=== PATIENT | female | born 1955 | race Caucasian/White ===

== ENCOUNTER → 2020-08-31 | Outpatient (CLI) | payer OTHER ==
[2020-08-31 12:54] VITALS: BP 173/103; PULSE 115; RESP 16; TEMP 98
--- NOTE | 2020-08-31 13:18 | P.PAINCN ---
History of Present Illness - Reason for Consult Consult date: 08/31/20 - History of Present Illness This is a 65-year-old patient referred by Dr. Marks with a chief complaint of chronic pain in low back and left hip. We saw her last 5 years ago where she was a referral from Dr. Marks. Had a history of laminotomy pain syndrome and was a potential candidate for a spinal cord stimulator.. At the time didnt decide to pursue it. She is multiple surgeries on her back (b/l L2-L3 laminectomy and facetectomy, L2-L3 transforaminal interbody fusion, L2-L3 pedicle screw instrumentation) and has been on several narcotic medications including a fentanyl patch and oxycodone as high as 50 mg every 6 hours.She has had injections before with zero relief. Patient comes today to discuss spinal cord stimulator placement. Patient notes that she is having low back pain with occasional radiation into the left buttock. She does describe the pain as being bilateral. Pain is described as dull and aching and constant throughout the day. She also notes that she has neck and left knee pain and is status post bilateral knee replacements. Pain is currently a 9 out of 10, at its worst a 10 out of 10, at its best an 8 out of 10. She currently takes Percocet 10 mg QID and Lyrica 50 mg BID. Patient also notes pain in her cervical spine and bilateral knees but is more concerned with her back She does not endorse side effects of occasional constipation, excessive sedation, dizziness, and significant fatigue. In addition to above, 13-point review of systems is also negative for chest pain, shortness of breath, changes in vision, changes in hearing, new onset weakness, abdominal pain, diarrhea, extreme fatigue, malaise, fever, skin changes, homicidal or suicidal ideation, or bowel or bladder incontinence. Physical exam: Vital Signs: Reviewed in EMR GENERAL: Well appearing, in no acute distress, walks with a walker PSYCH: Mood and affect is appropriate. Awake, alert, and oriented SKIN: Skin color, texture, turgor normal, no rashes or lesions HEENT: Normocephalic, atraumatic. EOM intact CV: No pedal edema RESP: Respirations are unlabored, no audible wheezing GI: Abdomen non-distended MUSCULOSKELETAL: Bilateral upper and lower extremity strength is normal and symmetric. No atrophy or tone abnormalities are noted. Lumbar spine: Has a brace over her lumbar spine which she refers to as a bone stimulator which was given to her from Dr. Marks Straight leg raising in the sitting position is positive for low back pain. No pain to palpation over the lumbar spine and paraspinous muscles. Positive for pain with facet loading and back extension/rotation.Unable to flex lumbar spine due to pain Decreased hip flexion 4/5 on the left side. Otherwise strength is 5/5. Extremities: Significant laxity in the left knee. No edema or skin discolorations noted. Well healed surgical scar over both knees. Gait: Gait is antalgic NEUR: Bilateral upper and lower extremity coordination and muscle stretch reflexes are 1+ and symmetric. Patellar reflex is 0+ on left side. Negative clonus. No loss of sensation is noted. Cranial nerves are grossly intact. Imaging: Prior MRI lumbar spine Comments: MRI of the lumbar spine from February 2015 demonstrates multiple disc bulges worst is a right paracentral at the L3-L4 level and another at the right-sided T12-L1 level with indentation along the interior portion of the thecal sac. There is significant artifact from into her particular stabilization screws at the L4 and L5 levels there is also significant facet hypertrophy at the lower lumbar spine and the lumbosacral junction. Assessment: 1. Post laminectomy syndrome 2. Plan: 1. Explanation: Diagnoses, prognoses, and multiple treatment options including but not limited to physical therapy, interventional therapies, medication management and surgery were discussed with the patient and all questions were answered to the patient's satisfaction. 2. Investigations: I have ordered a thoracic spine MRI for the potential spinal cord stimulator replacement. She also notes that she has recent lumbar MRIs and I told her to bring that with her to the [facility] in [place]. 3. Counseling: I had a long discussion with the patient regarding spinal cord stimulator placement. I talked through the trial phase and eventual permanent implant with the neurosurgeon. Patient is understanding. This is a patient that has been on significantly higher doses of opioid medications in the past and has since come down. We talked about further decreasing medications with the stimulator and she is agreeable. However the end of the visit she did ask me if I could refill her medications as her primary care provider will not fill them anymore. I told her I would not and that were she to go to [facility] in [place] did also not refill these high-dose medications for her. Gave her information regarding Nevro HF10 SCS 4. Procedures: Referred her to [facility] in [place] for spinal cord stimulator evaluation 5. Consultations: She did mention that she was approved for a stimulator at some other pain center but decided to leave them because she did not feel they were treating her appropriately (was only seeing midlevels, not physicians). She did mention that there was psychiatric approval for the stimulator placement and that she will working at those records. 6. Medications: Educated her that we will not be refilling her medications and neither will be [facility] 7. 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 History of Any Multi-Drug Resistant Organisms: None Reported Past Surgical History: Back Surgery, Joint Replacement Additional Past Surgical History / Comment(s): john total knee replacement, thoracotomy , back surgery x9 (1 cervical fusion and 8 lower back surgerys) Past Anesthesia/Blood Transfusion Reactions: No Reported Reaction Past Psychological History: Anxiety, Depression Smoking Status: Former smoker Past Alcohol Use History: None Reported Additional Past Alcohol Use History / Comment(s): quit smoking 2006, smoked 1 ppd, started smoking age 17. Past Drug Use History: None Reported - Past Family History Mother Family Medical History: No Reported History Medications and Allergies Home Medications Medication Instructions Recorded Confirmed Type DULoxetine HCL [Cymbalta] 60 mg PO HS 08/29/20 08/31/20 History Ibuprofen [Motrin] 800 mg PO Q6HR PRN 08/29/20 08/31/20 History Omeprazole [PriLOSEC] 40 mg PO DAILY 08/29/20 08/31/20 History Pregabalin [Lyrica] 50 mg PO BID 08/29/20 08/31/20 History Rosuvastatin Calcium [Crestor] 40 mg PO HS 08/29/20 08/31/20 History Vancomycin 125 mg PO Q6HR 08/29/20 08/31/20 History oxyCODONE-APAP 10-325MG [Percocet 1 - 2 tab PO Q6HR PRN 08/29/20 08/31/20 History 10-325 mg] Allergies Allergy/AdvReac Type Severity Reaction Status Date / Time No Known Allergies Allergy Verified 08/29/20 14:22 PQRS Measure Charge Sheet PQRS Narrative: Smoking Status Current every day smoker Pain Intensity [Lower Back] 8 Scale Used Numeric (1 - 10) Home Medications: Ambulatory Orders DULoxetine HCL [Cymbalta] 60 mg PO HS 08/29/20 Ibuprofen [Motrin] 800 mg PO Q6HR PRN 08/29/20 Omeprazole [PriLOSEC] 40 mg PO DAILY 08/29/20 Pregabalin [Lyrica] 50 mg PO BID 08/29/20 Rosuvastatin Calcium [Crestor] 40 mg PO HS 08/29/20 Vancomycin 125 mg PO Q6HR 08/29/20 oxyCODONE-APAP 10-325MG [Percocet 10-325 mg] 1 - 2 tab PO Q6HR PRN 08/29/20
== END | disposition home or self-care (01) ==
LOC: PNWHC3 12:34
PROVIDERS: ATTEND Anesthesiology
DX: M96.1 Postlaminectomy syndrome, not elsewhere classified (principal); F17.200 Nicotine dependence, unspecified, uncomplicated; K21.9 Gastro-esophageal reflux disease without esophagitis; Z79.899 Other long term (current) drug therapy; Z79.2 Long term (current) use of antibiotics
CPT/HCPCS: 99211

== ENCOUNTER 2022-12-26 06:49 | Day surgery (SDC) | payer MEDICARE, OTHER ==
[2022-12-25 10:05] VITALS: BMI 24.9
[2022-12-26] MEDS ORDERED: LACTATED RINGERS 1,000 ML IV SCH (07:12)
[2022-12-26 07:23] VITALS: TEMP 98.2
[2022-12-26] MEDS ORDERED: LIDOCAINE 2% INJ 20 MG/ML (2 ML VIAL) ONE (08:52)
[2022-12-26] MEDS ORDERED: PROPOFOL 10 MG/ML 20 ML VIAL IV ONE (08:52)
--- NOTE | 2022-12-26 09:11 | P.PCN ---
Date of Procedure: 12/26/22 Procedure(s) Performed: Brief history: Patient is a pleasant 67-year-old white female scheduled for an elective upper endoscopy as well as colonoscopy as a part of evaluation of chronic diarrhea and abdominal pain associated with intermittent nausea vomiting for the last several months duration. She was diagnosed with collagenous colitis in the past. Lately has been having worsening diarrhea with bowel movements anywhere from 10- 15 a day which are loose to watery in consistency of occasional fecal incontinence. She was treated with prednisone for 2 months and the diarrhea improved. She has been having 15-25 bowel movements daily. She is currently on Lomotil 2 tablets 4 times daily, Bentyl 2 tablets 4 times daily and still remains symptomatic and hence scheduled for repeat colonoscopy today. Procedure performed: Esophagogastroduodenoscopy with biopsy Colonoscopy with biopsy Preoperative diagnosis: Abdominal pain/nausea vomiting Chronic severe diarrhea and history of collagenous colitis Anesthesia: MAC Procedure: After informed consent was obtained from the patient was brought into the endoscopy unit and IV sedation was administered by anesthesia under continuous monitoring. Initially upper endoscopy was done. The Olympus GF 160 video endoscope was inserted inserted into the mouth and esophagus intubated without any difficulty and was gradually advanced into the stomach and duodenum and carefully examined. The bulb and second part of the duodenum appeared normal. Multiple biopsies were done from the duodenum to rule out celiac disease. The scope was then withdrawn into the stomach adequately insufflated with air and upon careful examination the antrum and body, cardia and fundus appeared normal. The scope was then withdrawn into the esophagus. The GE junction was located at 40 cm to the incisors. Small sliding Hiatal hernia noted. The GE junction had linear erosions in the distal esophagus consistent with LA grade B reflux esophagitis. . Rest of the esophagus appeared normal. Patient tolerated the procedure well. At this time the patient continued to remain sedation. Initial digital rectal examination was normal. Olympus CF 160 video colonoscope was then inserted into the rectum and gradually advanced to the cecum without any difficulty. Careful examination was performed as the scope was gradually being withdrawn. The prep was excellent. The cecum, ascending colon, transverse colon, descending colon, sigmoid colon and rectum appeared normal. Abscesses were done from the ascending, transverse and descending colon to evaluate for collagenous colitis. Retroflexion was performed in the rectum and no lesions were noted. Patient t olerated the procedure well. Impression: 1. Upper endoscopy revealed small hiatal hernia and LA grade B reflux esophagitis 2. Colonoscopy was within normal limits with no evidence of colitis or col orectal neoplasia. Recommendations: Findings of this examination were discussed with the patient as well as her family. She was advised to follow with the biopsy results. She will continue her current medications and she'll be seen in office in 2-3 weeks.
[2022-12-26 09:27] VITALS: RESP 16
[2022-12-26 09:36] VITALS: BP 152/81; PULSE 94
== END 2022-12-26 09:56 | disposition home or self-care (01) ==
LOC: ORWHC2ENDO 06:49
PROVIDERS: ATTEND Internal Medicine Gastroenterology
DX: K29.80 Duodenitis without bleeding (principal); K52.839 Microscopic colitis, unspecified; K44.9 Diaphragmatic hernia without obstruction or gangrene; K21.00 Gastro-esophageal reflux disease with esophagitis, without bleeding; I10 Essential (primary) hypertension; E78.5 Hyperlipidemia, unspecified; F41.8 Other specified anxiety disorders; M48.00 Spinal stenosis, site unspecified; Z79.899 Other long term (current) drug therapy
CPT/HCPCS: 88305; 45380; 43239; J2704; J2001

== ENCOUNTER → 2024-02-14 | Outpatient (CLI) | payer MEDICARE ==
--- NOTE | 2024-02-14 12:15 | CT ---
EXAMINATION TYPE: CT lumbar spine wo con DATE OF EXAM: 02/14/2024 11:59 AM COMPARISON: None HISTORY: back pain CT DLP: 386.1 mGycm Automated exposure control for dose reduction was used. Unenhanced CT of the lumbar spine was performed. Bone and soft tissue window settings are submitted as well as coronal and sagittal reconstructions. L1-L2: Vacuum disc. Intervertebral spacer. Pedicular screws are in place. Postoperative alignment is near-anatomic. No evidence for recurrent or residual process. L2-L3: Vacuum disc. Intervertebral spacer. Pedicular screws are in place. Postoperative alignment is near-anatomic. No evidence for recurrent or residual process. Decompressive laminectomy change. L3-L4: Decompressive laminectomy change. Intervertebral body spacer. Pedicular screw removal. Postope rative alignment is within normal limits. No evidence for recurrent or residual disease. L4-L5: Decompressive laminectomy change. Intervertebral body spacer. Pedicular screw removal. Postope rative alignment is within normal limits. No evidence for recurrent or residual disease. L5-S1: Decompressive laminectomy change. 2 intervertebral cages are noted to be in place. Postoperati ve alignment is within normal limits. No evidence recurrent or residual disease. IMPRESSION: Extensive postoperative changes of decompressive laminectomy and fusion. No evidence for recurrent or residual disease.
--- NOTE | 2024-02-14 14:21 | CT ---
EXAMINATION TYPE: CT cervical spine wo con DATE OF EXAM: 02/14/2024 COMPARISON: None HISTORY: neck pain CT DLP: 297.[address] of the cervical spine was performed with bone and soft tissue window settings submitted . Coronal and sagittal reconstruction is obtained. There is normal alignment and prevertebral soft tissues. Anterior cervical discectomy and fusion extending from C3 through C7. At C4-5 there is retrolisthesis of C4 on C5 of 3.8 mm. At C7-T1 there is anterolisthesis of C7 on T1 of 3.4 mm. There is posterior b meri ridging. No definite evidence for recurrent or residual process. Biapical scarring noted. IMPRESSION: Postsurgical changes as noted with postoperative alignment as discussed above.
== END | disposition home or self-care (01) ==
LOC: RADCTMAIN 11:29
PROVIDERS: ATTEND Neurological Surgery
DX: M54.2 Cervicalgia (principal); Z98.1 Arthrodesis status
CPT/HCPCS: 72125; 72131

== ENCOUNTER → 2024-10-28 | Outpatient (CLI) | payer MEDICARE ==
[2024-10-28 13:20] VITALS: BP 157/93; PULSE 70; RESP 16; TEMP 97.5
--- NOTE | 2024-10-28 15:46 | P.PAINPG ---
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 Pt states pain level is provoked at 7 /10 in intensity, constant, localized in the neck and lumbar spine, predominantly axial, achy in character w occasional shooting pain towards the shoulders and LEs. Pain is provoked by over activity and PT. Pain is alleviated by physician guided home stretches daily since 2021, heat, ice, medications, repositioning and rest . Oswestry axial pain score at 35. PMH: OA, GERD, HTN, Hyperlipidemia, Legionnaire's Disease, Hx of TB, MDD/ Anxiety PSH: KARLI L3-L4, KARLI T11-T12, Thoracotomy (2006), BL Total Knee Replacement, Lumbar Surgery x8, Posterior C3-C7 ACDF w hardware, C2-T2 Surgery, Colonoscopy (2022) SH: Former tobacco use, No ETOH use, No illicit drug use FH: Mo- No Reported History All: See list Meds: See list including Percocet, Zanaflex, Ibu, Tyl REVIEW OF ORGAN SYSTEMS: CONSTITUTIONAL: No fevers or chills. No recent weight loss. NEUROLOGICAL: + numbness and tingling along the distal extremities. No seizure disorders or headaches. MUSCULOSKELETAL: + pain PSYCHIATRIC: Denies current depression or suicidal thoughts. Physical Examinations : Constitutional : Cooperative , not in acute distress . Neurologic : Cranial nerve II to XII intact. No focal neurological deficits. Psychiatric : alert & oriented x 3. Matching mood & appropriate affect. Judgment & insight intact. Musculoskeletal : Cervical Spine Motor strength in the deltoid and biceps: Normal right side. Normal Left side Motor strength biceps and the wrist extensors: Normal right side . Normal left side Motor strength in the triceps muscle: Normal right side. Normal left side Deep tendon reflexes: Normal at the biceps. Normal at Brachioradialis. Normal at triceps Vertebral body tenderness to deep palpation over Cervical facet loading test: positive bilaterally Spurling test: positive bilaterally Taut bands w twitch response over BL C2-T4 Neck distraction test: positive bilaterally Jaspreet sign: positive bilaterally Lumbar spine Motor strength lower extremities ,thigh and legs 5/5 Right side , 5/5 Left side Deep tendon reflexes : Normal Knee Jerk. Normal Ankle Jerk Vertebral body tenderness over Sweeney Test positive Lumbar facet Loading Test: positive Right / positive Left Range of motion of the lumbar spine Flexion 30 degrees, extension 10 degrees Straight Leg Raise test: Left/ Right positive at degrees Charlette test: positive right / positive left. Severe tenderness over the Sacroiliac joint on the Right / Left sides Gaenslen test: positive bilaterally Seated flexion test: positive bilaterally. Sacral spine : Severe tenderness over the Sacroiliac joint: right side / left side Range of motion: Flexion of the lumbar spine <60 degrees Range of motion: Extension of the lumbar spine <20 degrees Gaenslen's Test positive Charlette test: positive right side / left side Thigh Thrust Test Sacral Thrust Test Imaging: CT non contrast thoracic spine from 10/01/24 reviewed Assessment/ Plan : T3 fracture, C3-C7 ACDF w hardware, post lumbar laminectomy syndrome Recommendation of BL TPIs C2-T4 #1 and medication management. Reduced MME equivalents of Percocet 10/325mg from 90MME by reducing frequency while integrating TPIs. Opiate/ narcotic agreement signed 10/28/24. Will no longer fill narcotics from Dr Hope's office of which pt acknowledges understanding. Will substitute Zanaflex to Baclofen for usp muscle relaxation. Add Narcan of which use of device discussed in cases of diminished level of consciousness or respiratory distress. Pt acknowledged she lives w female distribution tech at [facility] whom acknowledged being aware of its use. Risks, benefits of procedure discussed and patient verbalized understanding. Admits to anti- coagulant use or medical history of diabetes. Protocol for discontinuation/ continuation of medications marcelina procedure discussed. All questions answered. I have spent greater than 30 minutes on patient care today. Dr Nance was available by phone for the evaluation of this patient. The time was used to review the medical records including relevant urine studies and Prescription history (MAPs), review of the available imaging, evaluation and examination of the patient, coordination of care with the medical staff and if applicable referring physicians, as well as creation of the medical record PQRS Narrative: Smoking Status Current every day smoker Home Medications: Ambulatory Orders DULoxetine HCL [Cymbalta] 90 mg PO HS 08/29/20 Ibuprofen [Motrin] 800 mg PO Q6HR PRN 08/29/20 Omeprazole [PriLOSEC] 40 mg PO DAILY 08/29/20 Rosuvastatin Calcium [Crestor] 40 mg PO HS 08/29/20 Metoprolol Tartrate [Lopressor] 25 mg PO DAILY 12/25/22 Controlled Substance Measures - Controlled Substance Measures Is patient prescribed a controlled substance at discharge?: Yes When asked, does pt state using other controlled substances?: Yes If prescribed controlled substance>3 days was MAPS reviewed?: Yes If Rx opioid, was Start Talking consent form obtained?: Yes Was information provided regarding opioid addiction?: Yes
== END ==
LOC: PNWHC3 12:35
PROVIDERS: ATTEND Specialist
DX: S22.039A Unspecified fracture of third thoracic vertebra, initial encounter for closed fracture (principal); M43.22 Fusion of spine, cervical region; M96.1 Postlaminectomy syndrome, not elsewhere classified
CPT/HCPCS: 99211

== ENCOUNTER → 2025-01-27 | Outpatient (CLI) | payer MEDICARE ==
[2025-01-27 14:18] VITALS: BP 134/80; PULSE 108; RESP 17; TEMP 98.3
--- NOTE | 2025-01-27 16:56 | P.PAINPG ---
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 Pt states pain level is provoked at 8 /10 in intensity, constant, localized in the neck and lumbar spine, predominantly axial, achy in character w occasional shooting pain towards the shoulders and LEs. Pain is provoked by over activity and PT. Pain is alleviated by physician guided home stretches daily since 2021, heat, ice, medications, repositioning and rest. States she will have cervical surgery within the next 1-[address] Adams, Plastic and Reconstructive Surgeon in [place], [place]. Per MAPS, last pickle solution maker of Percocet 10/325mg #160 from pharmacy was 12/28/24. Will check UDS at next visit. Interventional procedures include Lumbar Surgery x8, Posterior C3-C7 ACDF w hard alvarez, C2-T2 Surgery, KARLI L3-L4, KARLI T11-T12 Medications include Percocet, Zanaflex, Ibu, Tyl REVIEW OF ORGAN SYSTEMS: CONSTITUTIONAL: No fevers or chills. No recent weight loss. NEUROLOGICAL: + numbness and tingling along the distal extremities. No seizure disorders or headaches. MUSCULOSKELETAL: + pain PSYCHIATRIC: Denies current depression or suicidal thoughts. Physical Examinations : Constitutional : Cooperative , not in acute distress . Neurologic : Cranial nerve II to XII intact. No focal neurological deficits. Psychiatric : alert & oriented x 3. Matching mood & appropriate affect. Judgment & insight intact. Musculoskeletal : Cervical Spine Motor strength in the deltoid and biceps: Normal right side. Normal Left side Motor strength biceps and the wrist extensors: Normal right side . Normal left side Motor strength in the triceps muscle: Normal right side. Normal left side Deep tendon reflexes: Normal at the biceps. Normal at Brachioradialis. Normal at triceps Vertebral body tenderness to deep palpation over Cervical facet loading test: positive bilaterally Spurling test: positive bilaterally Taut bands w twitch response over BL C2-T4 Neck distraction test: positive bilaterally Jaspreet sign: positive bilaterally Lumbar spine Motor strength lower extremities ,thigh and legs 5/5 Right side , 5/5 Left side Deep tendon reflexes : Normal Knee Jerk. Normal Ankle Jerk Vertebral body tenderness over Sweeney Test positive Lumbar facet Loading Test: positive Right / positive Left Range of motion of the lumbar spine Flexion 30 degrees, extension 10 degrees Straight Leg Raise test: Left/ Right positive at degrees Charlette test: positive right / positive left. Severe tenderness over the Sacroiliac joint on the Right / Left sides Gaenslen test: positive bilaterally Seated flexion test: positive bilaterally. Sacral spine : Severe tenderness over the Sacroiliac joint: right side / left side Range of motion: Flexion of the lumbar spine <60 degrees Range of motion: Extension of the lumbar spine <20 degrees Gaenslen's Test positive Charlette test: positive right side / left side Thigh Thrust Test Sacral Thrust Test Imaging: CT non contrast thoracic spine from 10/01/24 reviewed Assessment/ Plan : T3 fracture, C3-C7 ACDF w hardware, post lumbar laminectomy syndrome Recommendation of medication management. Percocet 10/325mg #160, Baclofen 10mg #60 w 1 RF. Opiate/ narcotic agreement signed 10/28/24. Add Narcan of which use of device discussed in cases of diminished level of consciousness or respiratory distress. Pt acknowledged she lives w female time motion analyst at [facility] whom acknowledged being aware of its use. Risks, benefits of procedure discussed and patient verbalized understanding. Admits to anti- coagulant use or medical history of diabetes. Protocol for discontinuation/ continuation of medications marcelina procedure discussed. All questions answered. I have spent greater than 30 minutes on patient care today. Dr Nance was available by phone for the evaluation of this patient. The time was used to review the medical records including relevant urine studies and Prescription history (MAPs), review of the available imaging, evaluation and examination of the patient, coordination of care with the medical staff and if applicable referring physicians, as well as creation of the medical record - Pain Location Throat Non-Pharmacological Interventions: Heat, Ice, Relaxation Technique Pharmacological Interventions: Medication PQRS Narrative: Smoking Status Current every day smoker Home Medications: Ambulatory Orders DULoxetine HCL [Cymbalta] 90 mg PO HS 08/29/20 Ibuprofen [Motrin] 800 mg PO Q6HR PRN 08/29/20 Omeprazole [PriLOSEC] 40 mg PO DAILY 08/29/20 Rosuvastatin Calcium [Crestor] 40 mg PO HS 08/29/20 Metoprolol Tartrate [Lopressor] 25 mg PO DAILY 12/25/22 Naloxone HCl [Narcan] 4 mg NASAL ONCE PRN 365 Days #1 each 10/28/24 Baclofen 10 mg PO BID 30 Days #60 tab 01/27/25 oxyCODONE HCL/ACETAMINOPHEN [Percocet 10-325 mg] 1 each PO Q4-6H PRN 30 Days #160 tab 01/27/25 oxyCODONE HCL/ACETAMINOPHEN [Percocet 10-325 mg] 1 tab PO Q4-6H PRN 30 Days #160 tab 01/27/25 Controlled Substance Measures - Controlled Substance Measures Is patient prescribed a controlled substance at discharge?: Yes When asked, does pt state using other controlled substances?: No If prescribed controlled substance>3 days was MAPS reviewed?: Yes
== END ==
LOC: PNWHC3 14:00
PROVIDERS: ATTEND Specialist
DX: S22.039A Unspecified fracture of third thoracic vertebra, initial encounter for closed fracture (principal); M43.22 Fusion of spine, cervical region; M96.1 Postlaminectomy syndrome, not elsewhere classified; F17.200 Nicotine dependence, unspecified, uncomplicated
CPT/HCPCS: 99212

== ENCOUNTER → 2025-03-25 | Outpatient (CLI) | payer MEDICARE ==
[2025-03-25 08:53] VITALS: BP 120/81; PULSE 65; RESP 16; TEMP 96.1
--- NOTE | 2025-03-25 14:55 | P.PAINPG ---
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 Had cervical surgery complications requiring intermittent course of stronger pain medications and had visit w surgeon on 02/11/25. Pt states pain level is provoked at 8 /10 in intensity, constant, localized in the neck and lumbar spine, predominantly axial, achy in character w occasional shooting pain towards the shoulders and LEs. Pain is provoked by over activity and PT. Pain is alleviated by physician guided home stretches daily since 2021, heat, ice, medications, repositioning and rest. States she will have cervical surgery within the next 1-[address] Adams, Plastic and Reconstructive Surgeon in [place], [place]. Will check UDS at next visit. Interventional procedures include Lumbar Surgery x8, Post Fusion C4-T1 (02/21), Hx post C3-C7 ACDF w hardware, C2-T2 Surgery, KARLI L3-L4, KARLI T11-T12 Medications include Percocet, Zanaflex, Ibu, Tyl REVIEW OF ORGAN SYSTEMS: CONSTITUTIONAL: No fevers or chills. No recent weight loss. NEUROLOGICAL: + numbness and tingling along the distal extremities. No seizure disorders or headaches. MUSCULOSKELETAL: + pain PSYCHIATRIC: Denies current depression or suicidal thoughts. Physical Examinations : Constitutional : Cooperative , not in acute distress . Neurologic : Cranial nerve II to XII intact. No focal neurological deficits. Psychiatric : alert & oriented x 3. Matching mood & appropriate affect. Judgment & insight intact. Musculoskeletal : Cervical Spine Motor strength in the deltoid and biceps: Normal right side. Normal Left side Motor strength biceps and the wrist extensors: Normal right side . Normal left side Motor strength in the triceps muscle: Normal right side. Normal left side Deep tendon reflexes: Normal at the biceps. Normal at Brachioradialis. Normal at triceps Vertebral body tenderness to deep palpation over Cervical facet loading test: positive bilaterally Spurling test: positive bilaterally Taut bands w twitch response over BL C2-T4 Neck distraction test: positive bilaterally Jaspreet sign: positive bilaterally Lumbar spine Motor strength lower extremities ,thigh and legs 5/5 Right side , 5/5 Left side Deep tendon reflexes : Normal Knee Jerk. Normal Ankle Jerk Vertebral body tenderness over Sweeney Test positive Lumbar facet Loading Test: positive Right / positive Left Range of motion of the lumbar spine Flexion 30 degrees, extension 10 degrees Straight Leg Raise test: Left/ Right positive at degrees Charlette test: positive right / positive left. Severe tenderness over the Sacroiliac joint on the Right / Left sides Gaenslen test: positive bilaterally Seated flexion test: positive bilaterally. Sacral spine : Severe tenderness over the Sacroiliac joint: right side / left side Range of motion: Flexion of the lumbar spine <60 degrees Range of motion: Extension of the lumbar spine <20 degrees Gaenslen's Test positive Charlette test: positive right side / left side Thigh Thrust Test Sacral Thrust Test Imaging: CT non contrast thoracic spine from 10/01/24 reviewed Assessment/ Plan : T3 fracture, C3-C7 ACDF w hardware, post lumbar laminectomy syndrome Recommendation of medication management. Oxycodone IR 10mg #90, Baclofen 10mg #60 w 1 RF. Opiate/ narcotic agreement signed 03/25/25. Narcan added. 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 Risks, benefits of procedure discussed and patient verbalized understanding. Admits to anti- coagulant use or medical history of diabetes. Protocol for discontinuation/ continuation of medications marcelina procedure discussed. All questions answered. I have spent greater than 30 minutes on patient care today. Dr Nance was available by phone for the evaluation of this patient. The time was used to review the medical records including relevant urine studies and Prescription history (MAPs), review of the available imaging, evaluation and examination of the patient, coordination of care with the medical staff and if applicable referring physicians, as well as creation of the medical record - Pain Location Bilateral Lower Neck Non-Pharmacological Interventions: Position/Reposition Pharmacological Interventions: PRN Medication, Scheduled Medication, Topical Medication PQRS Narrative: Smoking Status Current every day smoker Home Medications: Ambulatory Orders DULoxetine HCL [Cymbalta] 90 mg PO HS 08/29/20 Ibuprofen [Motrin] 800 mg PO Q6HR PRN 08/29/20 Omeprazole [PriLOSEC] 40 mg PO DAILY 08/29/20 Rosuvastatin Calcium [Crestor] 40 mg PO HS 08/29/20 Metoprolol Tartrate [Lopressor] 25 mg PO DAILY 12/25/22 Naloxone HCl [Narcan] 4 mg NASAL ONCE PRN 365 Days #1 each 10/28/24 Baclofen 10 mg PO BID 30 Days #60 tab 01/27/25 oxyCODONE HCL/ACETAMINOPHEN [Percocet 10-325 mg] 1 each PO Q4-6H PRN 30 Days #160 tab 01/27/25 oxyCODONE HCL/ACETAMINOPHEN [Percocet 10-325 mg] 1 tab PO Q4-6H PRN 30 Days #160 tab 01/27/25 methocarbamoL [Robaxin] 500 mg PO TID 03/25/25 Controlled Substance Measures - Controlled Substance Measures Is patient prescribed a controlled substance at discharge?: Yes When asked, does pt state using other controlled substances?: No If prescribed controlled substance>3 days was MAPS reviewed?: Yes If Rx opioid, was Start Talking consent form obtained?: Yes Was information provided regarding opioid addiction?: Yes
== END ==
LOC: PNWHC3 08:35
PROVIDERS: ATTEND Specialist
DX: S22.039A Unspecified fracture of third thoracic vertebra, initial encounter for closed fracture (principal); M47.812 Spondylosis without myelopathy or radiculopathy, cervical region; M96.1 Postlaminectomy syndrome, not elsewhere classified; Z98.1 Arthrodesis status; X58.XXXA Exposure to other specified factors, initial encounter
CPT/HCPCS: 99211